=== PATIENT | female | born 1995 | race Caucasian/White ===

== ENCOUNTER 2020-05-06 14:14 | Emergency (ER) | payer OTHER ==
[~2020-05-06] VITALS: Ht 162.6 cm; Wt 66.7 kg
[2020-05-06] MEDS ORDERED: PROTONIX20 MG (14:36)
[2020-05-06] MEDS ORDERED: PEPCID AC20 MG (14:36)
== END 2020-05-06 22:10 | disposition home or self-care (01) ==
LOC: ER 14:14
DX: K62.5 Hemorrhage of anus and rectum (principal)